=== PATIENT | female | born 1990 | race Caucasian/White ===

== ENCOUNTER 2020-07-10 07:42 | Emergency (ER) | payer OTHER ==
[~2020-07-10 07:42] MED LIST: ATROVENT HFA12.9 GM INH; IBUPROFEN800 MG PO; PREDNISONE20 MG PO; PROVENTIL HFA6.7 GM INH; ROBITUSSIN DM UD5 ML PO; TAMIFLU 75 MG C75 MG PO; TESSALON PERLE100 MG PO
[2020-07-10 08:17] LABS: HEMOGLOBIN 14.1 gm/dl (12.3-15.3); RED BLOOD COUNT 4.29 M/UL (4.00-5.10); WHITE BLOOD COUNT 5.5 K/UL (4.5-11.0)
[2020-07-10 08:34] LABS: BUN/CREATININE RATIO 13 (0-10)
[2020-07-10] MEDS ORDERED: ASPIRIN CHEWABL81 MG PO (11:58)
== END 2020-07-10 12:13 | disposition home or self-care (01) ==
LOC: ER1 07:42
PROVIDERS: Emergency Medicine
DX: R07.9 Chest pain, unspecified (principal)
CPT/HCPCS: 71045; 80053; 82550; 82553; 83874; 84484; 84703; 85025; 85379; 99285

== ENCOUNTER → 2022-01-13 | Emergency (ER) | payer OTHER ==
[~2022-01-13] MED LIST changes: +ASPIRIN CHEWABL81 MG PO
== END | disposition left against medical advice (07) ==
LOC: ER1 18:08
DX: Z53.21 Procedure and treatment not carried out due to patient leaving prior to being seen by health care provider (principal)